=== PATIENT | female | born 1950 | race Caucasian/White ===

== ENCOUNTER 2020-08-02 13:49 | Outpatient (REF) | payer MEDICARE, SELFPAY ==
--- NOTE | ~2020-08-02 | MM_ITS ---
EXAMINATION: MM SCREENING DIGITAL BREAST TOMOSYNTHESIS, BILATERAL CLINICAL INFORMATION: Screening. Asymptomatic. The lifetime risk of breast cancer based on the Tyrer-Cuzick Model is 2%. COMPARISON: Mammography: 07/28/2019, 06/13/2018, 05/22/2017, 04/24/2016, 03/05/2015, 02/01/2014, 01/20/2013. TECHNIQUE: Digital breast tomosynthesis is performed in both the craniocaudal and mediolateral oblique views along with computer-aided detection (CAD). Synthesized 2D images are generated from the tomosynthesis. Additional bilateral CC views are provided. FINDINGS: There are scattered areas of fibroglandular density (ACR BI-RADS breast composition Category b). Parenchymal pattern is similar to prior exams and borders on predominantly fatty. There is a stable chronic round mass or fibroglandular density retroareolar left breast approximately 1.6 cm similar to prior exams. Neither breast shows developing density. There are no abnormal calcifications. The axilla and skin contours are unremarkable. MM/MM tomosynthesis screening BI IMPRESSION: No significant changes from prior studies. Stable chronic mass retroareolar left breast. ASSESSMENT: BI-RADS 2: Benign RECOMMENDATION: Routine annual mammography screening. This patient's information was entered into a reminder system with a target due date for their next mammogram.
== END 2020-08-02 13:50 | disposition home or self-care (01) ==
LOC: HO.MAMMO 13:49
PROVIDERS: PCP Internal Medicine; Visit Provider Nurse Practitioner Adult Health
DX: Z12.31 Encounter for screening mammogram for malignant neoplasm of breast (principal)
CPT/HCPCS: 77063; 77067

== ENCOUNTER 2021-08-04 12:28 | Outpatient (REF) | payer MEDICARE, SELFPAY ==
--- NOTE | ~2021-08-04 | MM_ITS ---
EXAMINATION: MM SCREENING DIGITAL BREAST TOMOSYNTHESIS, BILATERAL CLINICAL INFORMATION: Screening. Asymptomatic. The lifetime risk of breast cancer based on the Tyrer-Cuzick Model is 2%. COMPARISON: Mammography: 08/02/2020, 07/28/2019, 06/13/2018 TECHNIQUE: Digital breast tomosynthesis is performed in both the craniocaudal and mediolateral oblique views along with computer-aided detection (CAD). Synthesized 2D images are generated from the tomosynthesis. Additional bilateral MLO views are provided. FINDINGS: There are scattered areas of fibroglandular density (ACR BI-RADS breast composition Category b). Background stromal and fibroglandular densities are stable. Parenchymal pattern borders on predominantly fatty. Round fibroglandular density or chronic mass again seen anterior retroareolar left breast similar to prior studies. There is no developing density. No interval mass or architectural abnormality or abnormal calcifications. The axilla and skin contours are unremarkable. No significant changes. MM/MM tomosynthesis screening BI IMPRESSION: No significant changes from prior studies. ASSESSMENT: BI-RADS 2: Benign RECOMMENDATION: Routine annual mammography screening. This patient's information was entered into a reminder system with a target due date for their next mammogram.
== END 2021-08-04 12:29 | disposition home or self-care (01) ==
LOC: HO.MAMMO 12:28
PROVIDERS: PCP Internal Medicine; Visit Provider Internal Medicine
DX: Z12.31 Encounter for screening mammogram for malignant neoplasm of breast (principal)
CPT/HCPCS: 77063; 77067

== ENCOUNTER 2022-08-08 08:14 | Outpatient (REF) | payer MEDICARE, SELFPAY ==
--- NOTE | ~2022-08-08 | MM_ITS ---
EXAMINATION: MM SCREENING DIGITAL BREAST TOMOSYNTHESIS, BILATERAL CLINICAL INFORMATION: Screening. Asymptomatic. The lifetime risk of breast cancer based on the Tyrer-Cuzick Model is 2%. COMPARISON: Mammography: 08/04/2021, 08/02/2020, 07/28/2019, 06/13/2018, 05/22/2017 TECHNIQUE: Digital breast tomosynthesis is performed in both the craniocaudal and mediolateral oblique views along with computer-aided detection (CAD). Synthesized 2D images are generated from the tomosynthesis. Additional left CC and left MLO views are provided. FINDINGS: There are scattered areas of fibroglandular density (ACR BI-RADS breast composition Category b). Parenchymal pattern is similar to prior studies and there is no developing density or significant mass or architectural abnormality. Oval parenchymal asymmetry or mass anterior central left breast is similar to prior exams. The bilateral breasts show no abnormal calcifications in the axilla and skin contours are unremarkable. MM/MM tomosynthesis screening BI IMPRESSION: No significant changes from prior studies. ASSESSMENT: BI-RADS 2: Benign RECOMMENDATION: Routine annual mammography screening. This patient's information was entered into a reminder system with a target due date for their next mammogram.
--- NOTE | ~2022-08-08 | MM_ITS ---
EXAMINATION: BONE DENSITOMETRY CLINICAL INDICATION: Postmenopausal. COMPARISON: Previous BD dated 07/28/2019 and baseline BD dated 04/19/2008. TECHNIQUE: Using a [employer] DXA System (software version: 13.1) manufactured by [employer], dual-energy x-ray absorptiometry was performed of the lumbar spine and left hip. The images are of good technical quality. Summary results are attached. FINDINGS: AP SPINE L1-L4: Current: BMD 1.283 g/cm2, Z-score 2.1, T-score 0.9, normal, 1.8% decrease from previous, 7.7% increase from baseline (<5% change is not significant). Prior: BMD 1.307 g/cm2. Baseline: BMD 1.191 g/cm2. LEFT FEMUR, NECK: Current: BMD 0.989 g/cm2, Z-score 1.2, T-score -0.4, normal. Prior: BMD 0.975 g/cm2. Baseline: BMD 0.977 g/cm2. LEFT FEMUR, TOTAL: Current: BMD 1.129 g/cm2, Z-score 2.3, T-score 1.0, normal, 1.5% increase from previous, 1.5% increase from baseline (<5% change is not significant). Prior: BMD 1.112 g/cm2. Baseline: BMD 1.112 g/cm2. 1220 07/18/2008 IDENTIFIED RISK FACTORS: Menopause. HISTORY OF FRACTURE: None listed. MEDICATIONS: Calcium, vitamin D. MM/XR DEXA axial skeleton IMPRESSION: 1. DIAGNOSIS: Normal bone density based on the lowest T-score value of -0.4 in the femoral neck applying World Health Organization criteria. 2. 10-YEAR FRACTURE RISK PREDICTION, FRAX: According to the guidelines, FRAX calculation should only be performed on patients in the osteopenia bone density category. Therefore, FRAX was not performed on this patient. 3. Treatment Recommendations: NOF guidelines recommend consideration for treatment in postmenopausal women and men age 50 and older presenting with the following: -A hip or vertebral (clinical or morphometric) fracture. -T-score less than or equal to -2.5 at the femoral neck or spine after appropriate evaluation to exclude secondary causes. -Low bone mass at the hip or spine and a 10-year fracture probability by FRAX of greater than or equal to 3% for hip fracture or greater than or equal to 20% for major osteoporotic fracture based on the [place] adapted WHO algorithm. 4. Other Recommendations: All treatment decisions require clinical judgment and consideration of individual patient factors, including patient preferences, comorbidities, previous drug use, risk factors not captured in the FRAX model (e.g. frailty, falls, vitamin D deficiency, increased bone turnover, interval significant decline in bone density) and possible under or overestimation of fracture risk by FRAX. FUTURE SCAN RECOMMENDATION: People with diagnosed cases of osteoporosis or at high risk for fracture should have regular bone mineral density tests. For patients eligible for Medicare, routine testing is allowed once every 2 years. The testing frequency can be increased to one year for patients who have rapidly progressing disease, those who are receiving or discontinuing medical therapy to restore bone mass, or have additional risk factors. 4
== END 2022-08-08 08:15 | disposition home or self-care (01) ==
LOC: HO.MAMMO 08:14
PROVIDERS: PCP Internal Medicine; Visit Provider Internal Medicine
DX: Z12.31 Encounter for screening mammogram for malignant neoplasm of breast (principal); Z13.820 Encounter for screening for osteoporosis; Z78.0 Asymptomatic menopausal state
CPT/HCPCS: 77063; 77067; 77080

== ENCOUNTER 2023-08-14 08:59 | Outpatient (REF) | payer MEDICARE, SELFPAY | END 2023-08-14 09:00 | disposition home or self-care (01) | LOC: HO.MAMMO 08:59 | PROVIDERS: PCP Internal Medicine; Visit Provider Internal Medicine | DX: Z12.31 Encounter for screening mammogram for malignant neoplasm of breast (principal) | CPT/HCPCS: 77063; 77067 ==

== ENCOUNTER → 2023-08-14 09:30 | Outpatient (BNV) | payer MEDICARE, SELFPAY | PROVIDERS: PCP Internal Medicine; Visit Provider Radiology Diagnostic Radiology | DX: Z12.31 Encounter for screening mammogram for malignant neoplasm of breast (principal) | CPT/HCPCS: 77063; 77067 ==

== ENCOUNTER 2024-09-25 12:32 | Outpatient (REF) | payer MEDICARE, SELFPAY ==
--- NOTE | ~2024-09-25 | MM_ITS ---
EXAMINATION: DXA BONE DENSITY AXIAL HISTORY: Z78.0 MENOPAUSAL STATE TECHNIQUE: [employer] Dual energy absorptiometry (DEXA) of the lumbar spine, total left hip, and femoral neck was performed. COMPARISON: Comparison is made with the prior examination dated 08/08/2022. FINDINGS: The bone mineral density of the lumbar spine is 1.306 with a T-score of 1.0, and a Z-score of 2.3. This is indicative of normal bone mineral density. This represents a BMD change of 1.8% compared to the prior exam. This is not statistically significant. The bone mineral density of the left total hip is 1.080 with a T-score of 0.6, and a Z-score of 2.0. This is indicative of normal bone mineral density.- This represents a BMD change of 4.3% compared to the prior exam. This is statistically significant. The bone mineral density of the left femoral neck is 0.970 with a T-score of -0.5, and a Z-score of 1.1. This is indicative of normal bone mineral density. This represents a BMD change of -1.9% compared to the prior exam. FRACTURE RISK: The FRAX index suggests a ten year probability of major osteoporotic fracture of 8.1%, and of hip fracture 0.9%. MM/XR DEXA axial skeleton IMPRESSION: Based on bone mineral density, and according to World Health Organization (WHO) criteria, the diagnosis is consistent with normal bone mineral density. All bone density values are in grams per centimeter squared (g/cm2). Statistically, 68% of repeat scans fall within 1 SD (+/- 0.010 g/cm2 for AP spine L1-L4) and 1 SD (+/- 0.012 g/cm2 for femur total) FRAX is a trademark of the [employer], a World Health Organization (WHO) Collaborating Center. Electronically signed by: Denis Falcon MD 09/25/2024 01:27 PM EDT
--- OUTSIDE RECORDS SUMMARY | 2024-09-25 13:10 | XMS_ITS | Clinical Summary ---
Author Organization [facility] 299 [facility] Address [address] [place] [address] Phone Care Team Providers Care Shipping Services Sales Representative Name Role Phone Oli Benoit DO Primary Care Provider [phone] Allergies Active Allergy Reactions Criticality Noted Date Comments Codeine 09/09/2024 Medications sertraline (ZOLOFT) 50 mg tablet Take 1 tablet (50 mg total) by mouth 1 (one) time each day. 06/22/2024 Active omeprazole (PriLOSEC) [address] capsule Take 1 capsule (20 mg total) by mouth 1 (one) time each day. Do not crush or chew. Active traMADoL (ULTRAM) 50 mg tablet 08/10/2024 Active Active Problems Problem Noted Date Diagnosed Date Gastroesophageal reflux disease without esophagi tis 09/09/2024 Encounters Date Type Department Care Team Description 09/10/2024 Telephone Gastroenterology - [address] [facility] [address] [place] [phone] Sveta Esteves MA 09/09/2024 9:17 AM EDT Anesthesia Event [facility] Endoscopy [address] [place] [phone] Yuli Shah MD 09/09/2024 8:33 AM EDT - 09/09/2024 11:59 PM EDT Hospital Encounter [facility] End[facility] [address] [place] [phone] Britany Booth MD Barnes, Tyanna R, CRNA Kriz, Petra, MD Personal history of other colon polyps; Family history of colonic polyps Discharge Disposition: Home or Self Care 09/07/2024 Telephone Gastroenterology - [address] [phone] Britany Booth MD 07/10/2024 Telephone Gastroenterology - [address] [phone] Britany Booth MD 06/29/2024 Telephone Gastroenterology - [address] [phone] Britany Booth MD from Last 3 Months Surgical History Surgery Date Site/Laterality Comments COLONOSCOPY SHOULDER ARTHROSCOPY CHOLECYSTECTOMY Medical History Medical History Date Comments GERD (gastroesophageal reflux disease) Hyperlipidemia Liver disease Depression Social History Tobacco Use Types Packs/Day Years Used Date Smoking Tobacco: Never Smokeless Tobacco: Never Tobacco Cessation:Counseling Given: Not Answered Alcohol Use Standard Drinks/Week Comments Never 0 (1 standard drink = 0.6 oz pur e alcohol) Interpersonal Safety Answer Date Record ed Physical Abuse 09/09/2024 Verbal Abuse 09/09/2024 Comments Unknown Sex and Gender Information Value Date Recorded Sex Assigned at Female 09/09/2024 8:31 AM EDT Legal Sex Female 9:10 AM EST Gender Identity Female 09/09/2024 8:31 AM EDT Sexual Orientation Straight 09/09/2024 8: 31 AM EDT Obstetrics History Last Filed Vital Signs Vital Sign Reading Time Taken Comments Blood Pressure 116/78 09/09/2024 9:58 AM EDT Pulse 68 09/09/2024 9:58 AM EDT Temperature 36.5 ??C (97.7 ??F) 09/09/2024 9:08 AM ED T Respiratory Rate 18 09/09/2024 9:58 AM EDT Oxygen Saturation 95% 09/09/2024 9:38 AM EDT Inhaled Oxygen Concentration - - Weight 81.6 kg (180 lb) 09/09/2024 9:08 AM EDT Height 160 cm (5' 3 ) 09/09/2024 9:08 AM EDT Body Mass Index 31.89 09/09/2024 9:08 AM EDT Plan of Treatment Health Maintenance Due Date Last Done Comments DTaP,Tdap,and Td Vaccines (1 - Tdap) 09/16/1967 Pneumococcal Vaccine: 50+ Years (1 of 2 - PCV) 09/16/1967 Zoster Vaccines (1 of 2) 1998 Depression Screening 05/20/2022 Hepatitis C Screening 05/20/2022 Medicare Annual Wellness Visit 05/20/2022 Osteoporosis Screening (Bone Density Screening) 05/20/2022 Social Influencers of Health Screening 05/20/2022 RSV Immunization Adult Patients (1 - 1-dose 75+ series) 09/16/2023 COVID-19 Vaccine (2023- season) 2024 05/17/2021, 09/24/2020, 09/03/2020 Falls Risk Assessment 09/09/2025 09/09/2024 Cholesterol Screening (Lipid Panel) 08/10/2029 08/10/2024 Influenza Vaccine Completed 04/07/2024, , 04/10/2022, Additional history exists Colorectal Cancer Screening: Colonoscopy Discontinued 09/09/2024, 01/13/2013, 01/13/2013, Additional history exists HIB Vaccines Aged Out No longer eligi ble based on patient's age to complete this topic HPV Vaccines Aged Out No longer eligi ble based on patient's age to complete this topic Hepatitis A Vaccines Aged Out No long er eligible based on patient's age to complete this topic Hepatitis B Vaccines Aged Out No long er eligible based on patient's age to complete this topic IPV Vaccines Aged Out No longer eligi ble based on patient's age to complete this topic MMR Vaccines Aged Out No longer eligi ble based on patient's age to complete this topic Meningococcal ACWY Vaccine Aged Out N o longer eligible based on patient's age to complete this topic Meningococcal B Vaccine Aged Out No l onger eligible based on patient's age to complete this topic RSV Immunization Patients Under 20 months Aged Out No longer eligible based on patient's age to complete this topic Varicella Vaccines Aged Out No longer eligible based on patient's age to complete this topic Procedures Procedure Name Priority Date/Time Associated Diagnosis Comments COLONOSCOPY Routine 09/09/2024 9:37 AM EDT Personal history of other colon polyps Family history of colonic polyps TISSUE EXAM Routine 09/09/2024 9:28 AM EDT Personal history of other colon polyps Family history of colonic polyps CBC WITH AUTO DIFFERENTIAL Routine 08/10/2024 8:22 AM EST Esophageal reflux Fatty metamorphosis of liver Routine general medical examination at a health care facility Obesity, unspecified GERD (gastroesophageal reflux disease) HEMOGLOBIN A1C Routine 08/10/2024 8:22 AM EST Esophageal reflux Fatty metamorphosis of liver Routine general medical examination at a [facility] Obesity, unspecified GERD (gastroesophageal reflux disease) Abnormal finding of blood chemistry, unspecified COMPREHENSIVE METABOLIC PANEL Routine 08/10/2024 8:22 AM EST Esophageal reflux Fatty metamorphosis of liver Routine general medical examination at a [facility] facility Obesity, unspecified GERD (gastroesophageal reflux disease) CBC AND DIFFERENTIAL Routine 08/10/2024 8:22 AM EST Esophageal reflux Fatty metamorphosis of liver Routine general medical examination at a [facility] Obesity, unspecified GERD (gastroesophageal reflux disease) THYROID STIMULATING HORMONE Routine 08/10/2024 8:22 AM EST Esophageal reflux Fatty metamorphosis of liver Routine general medical examination at a [facility] Obesity, unspecified GERD (gastroesophageal reflux disease) Abnormal findings on diagnostic imaging of other specified body structures LIPID PANEL WITH REFLEX TO DIRECT LDL Routine 08/10/2024 8:22 AM EST Esophageal reflux Fatty metamorphosis of liver Routine general medical examination at a health care facility Obesity, unspecified GERD (gastroesophageal reflux disease) from Last 3 Months Results * COLONOSCOPY Anesthesia - MAC; [facility] ENDOSCOPY (09/09/2024 9:37 AM EDT) Anatomical Region Laterality Modality Other 09/09/2024 9:13 AM EDT Impressions 09/09/2024 9:39 AM EDT - The examined portion of the ileum was normal. ? - One 3 mm polyp in the transverse colon, removed with ? a cold snare. Resected and retrieved. ? - Diverticulosis in the sigmoid colon. ? - Two 1 to 2 mm polyps in the rectum, removed with a ? cold snare. Resected and retrieved. ? - Internal hemorrhoids. Recommendation: ?- Await pathology results. ? - Repeat colonoscopy is not recommended for ? surveillance. Narrative 09/09/2024 9:39 AM EDT [facility] GI Patient Name: Kevon Cook Procedure Date: 09/09/2024 9:13 AM Date of : 1950 Age: 73 Gender: Female Note Status: Finalized Attending MD: Britany Booth MD, Procedure Date No Time: 09/09/2024 Procedure: ? Colonoscopy Indications: ? High risk colon cancer surveillance: Personal history ? of colonic polyps Providers: ? Britany Booth MD Referring MD: ?Oli Benoit, DO Medicines: ? Propofol per Anesthesia Complications: ? No immediate complications. Estimated Blood Loss: ? Estimated blood loss: none. Procedure: ? Pre-Anesthesia Assessment: ? - ASA Grade Assessment: II - A patient with mild ? systemic disease. ? After I obtained informed consent, the scope was ? passed under direct vision. Throughout the procedure, ? the patient's blood pressure, pulse, and oxygen ? saturations were monitored continuously.The Olympus ? Pediatric Colonoscope was introduced through the anus ? and advanced to the terminal ileum. The colonoscopy ? was performed without difficulty. The patient ? tolerated the procedure well. The quality of the bowel ? preparation was good. Findings: ?The perianal and digital rectal examinations were ? normal. ? The terminal ileum appeared normal. ? Incidental nonbleeding AVM was noted in the cecum ? A 3 mm polyp was found in the transverse colon. The ? polyp was sessile. The polyp was removed with a cold ? snare. Resection and retrieval were complete. ? A few small-mouthed diverticula were found in the ? sigmoid colon. ? Two sessile polyps were found in the rectum. The ? polyps were 1 to 2 mm in size. These polyps were ? removed with a cold snare. Resection and retrieval ? were complete. ? Internal hemorrhoids were found during retroflexion. ? The hemorrhoids were Grade I (internal hemorrhoids ? that do not prolapse). Procedure Code(s): ? --- Professional --- ? 32380, Colonoscopy, flexible; with removal of ? tumor(s), polyp(s), or other lesion(s) by snare ? technique Diagnosis Code(s): ? --- Professional --- ? Z86.010, Personal history of colonic polyps ? D12.3, Benign neoplasm of transverse colon (hepatic ? flexure or splenic flexure) ? D12.8, Benign neoplasm of rectum CPT copyright 2020 [employer]. All rights reserved. The codes documented in this report are preliminary and upon animal nutrition consultant review may be revised to meet current compliance requirements. Britany Booth MD 09/09/2024 9:39:11 AM This report has been signed electronically.Britany Booth MD Number of Addenda: 0 Note Initiated On: 09/09/2024 9:13 AM Scope In: Scope Out: ? Endoscopy Department at [facility] - [address] [place] [address], ? [place] [phone] Procedure Note Britany Booth MD - 09/09/2024 [facility] GI Patient Name: Kevon Cook Procedure Date: 09/09/2024 9:13 AM Date of : 1950 Age: 73 Gender: Female Note Status: Finalized Attending MD: Britany Booth MD, Procedure Date No Time: 09/09/2024 Procedure: Colonoscopy Indications: High risk colon cancer surveillance: Personalhistory of colonic polyps Providers: Britany Booth MD Referring MD: Oli Benoit DO Medicines: Propofol per Anesthesia Complications: No immediate complications. Estimated Blood Loss: Estimated blood loss: none. Procedure: Pre-Anesthesia Assessment: - ASA Grade Assessment: II - A patient with mild systemic disease. After I obtained informed consent, the scope was passed under direct vision. Throughout theprocedure, the patient's blood pressure, pulse, and oxygen saturations were monitored continuously.The Olympus Pediatric Colonoscope was introduced through theanus and advanced to the terminal ileum. The colonoscopy was performed without difficulty. The patient tolerated the procedure well. The quality of thebowel preparation was good. Findings: The perianal and digital rectal examinations were normal. The terminal ileum appeared normal. Incidental nonbleeding AVM was noted in the cecum A 3 mm polyp was found in the transverse colon. The polyp was sessile. The polyp was removed with acold snare. Resection and retrieval were complete. A few small-mouthed diverticula were found in the sigmoid colon. Two sessile polyps were found in the rectum. The polyps were 1 to 2 mm in size. These polyps were removed with a cold snare. Resection and retrieval were complete. Internal hemorrhoids were found duringretroflexion. The hemorrhoids were Grade I (internal hemorrhoids that do not prolapse). Procedure Code(s): --- Professional --- 77814, Colonoscopy, flexible; with removal of tumor(s), polyp(s), or other lesion(s) by snare technique Diagnosis Code(s): --- Professional --- Z86.010, Personal history of colonic polyps D12.3, Benign neoplasm of transverse colon (hepatic flexure or splenic flexure) D12.8, Benign neoplasm of rectum CPT copyright 2020 [employer]. All rights reserved. The codes documented in this report are preliminary and upon animal nutrition consultant reviewmay be revised to meet current compliance requirements. Britany Booth MD 09/09/2024 9:39:11 AM This report has been signed electronically.Britany Booth MD Number of Addenda: 0 Note Initiated On: 09/09/2024 9:13 AM Scope In: Scope Out: Endoscopy Department at [facility] - [address] [place] [phone] IMPRESSION: - The examined portion of the ileum was normal. - One 3 mm polyp in the transverse colon, removedwith a cold snare. Resected and retrieved. - Diverticulosis in the sigmoid colon. - Two 1 to 2 mm polyps in the rectum, removed witha cold snare. Resected and retrieved. - Internal hemorrhoids. Recommendation: - Await pathology results. - Repeat colonoscopy is not recommended for surveillance. us Britany Booth MD GI~PROCEDURE ORDERABLES Final Result * Tissue exam (09/09/2024 9:28 AM EDT) Final Diagnosis A. Transverse Colon, polyp x1: Tubular adenoma. B. Rectum, polyps x2: Hyperplastic polyps. 09/10/2024 9:56 AM EDT [facility] Gross Description A. Large Intestine, Transverse Colon, polyp x1: Labeled trans colon polyp x 1 . Received in formalin is a 0.3 cm irregular uriostegui mucosal tissue fragment which is wrapped in paper and submitted in toto in one cassette, one piece, multiple levels on one slide. B. Large Intestine, Rectum, polyp x2: Labeled LI rectum polyp x 2 . Received in formalin are two irregular uriostegui mucosal tissue fragments, each measuring approximately 0.2 cm in greatest dimension, which are wrapped in paper and submitted in toto in one cassette, two pieces, multiple levels on one slide. BERNABE 09/10/2024 9:56 AM EDT [facility] Disclaimer Unless otherwise specified, all tissue is 10% NB formalin fixed and paraffin embedded. 09/10/2024 9:56 AM EDT [facility] Tissue Transverse colon structure / Unknown 09/09/2024 9:28 AM EDT 09/09/2024 10:10 AM EDT Tissue specimen (specimen) Rectum structure / Unknown 09/09/2024 9:34 AM EDT 09/09/2024 10:10 AM EDT Britany Booth MD LAB PATHOLOGY ORDERABLES Final Result [facility] [address] [place] [address], * (ABNORMAL) Lipid panel with reflex to direct LDL (08/10/2024 8:22 AM EST) Cholesterol 182 0 - 200 mg/dL LAB CHEMISTRY METHOD 08/10/2024 11:16 AM EST [facility] Triglycerides 268(H) 0 - 150 mg/dL LAB CHEMISTRY METHOD 08/10/2024 11:16 AM EST [facility] HDL 35(L) >=40 mg/dL LAB CHEMISTRY METHOD 08/10/2024 11:16 AM [facility] LDL Calculated 93 0 - 100 mg/dL LAB CHEMISTRY METHOD 08/10/2024 11:16 AM [facility] VLDL Cholesterol Niles 53.6 mg/dL LAB CHEMISTRY METHOD 08/10/2024 11:16 AM [facility] Non HDL Chol. (LDL+VLDL) 147(H) <145 mg/dL LAB CHEMISTRY METHOD 08/10/2024 11:16 AM [facility] Chol/HDL Ratio 5.2(H) 0.0 - 4.4 LAB CHEMISTRY METHOD 08/10/2024 11:16 AM [facility] Blood Venous blood specimen / Unknown Venipuncture / Unknown 08/10/2024 8:22 AM EST 08/10/2024 8:22 AM EST Ladan Frederick NP LAB BLOOD ORDERABLES Fi nal Result [facility] [address] [place] [address], [place] [phone] * (ABNORMAL) CBC auto differential (08/10/2024 8:22 AM EST) WBC 9.7 4.8 - 10.8 K/mcL LAB HEMETOLOGY METHOD 08/10/2024 11:07 AM [facility] RBC 4.80 3.80 - 4.80 M/mcL LAB HEMETOLOGY METHOD 08/10/2024 11:07 AM [facility] Hemoglobin 14.0 11.5 - 16.0 g/dL LAB HEMETOLOGY METHOD 08/10/2024 11:07 AM [facility] Hematocrit 43.4 35.0 - 47.0 % LAB HEMETOLOGY METHOD 08/10/2024 11:07 AM [facility] MCV 91.2 79.0 - 98.0 FL LAB HEMETOLOGY METHOD 08/10/2024 11:07 AM [facility] MCH 29.4 27.0 - 32.0 pcg LAB HEMETOLOGY METHOD 08/10/2024 11:07 AM [facility] MCHC 32.3 32.0 - 37.0 g/dL LAB HEMETOLOGY METHOD 08/10/2024 11:07 AM [facility] RDW 13.2 11.0 - 15.0 % LAB HEMETOLOGY METHOD 08/10/2024 11:07 AM [facility] Platelets 269 130 - 400 K/mcL LAB HEMETOLOGY METHOD 08/10/2024 11:07 AM [facility] MPV 10.0 7.0 - 11.0 FL LAB HEMETOLOGY METHOD 08/10/2024 11:07 AM [facility] NRBC 0.0 <1.0 % LAB HEMETOLOGY METHOD 08/10/2024 11:07 AM [facility] NRBC Absolute 0.00 <0.10 K/mcL LAB HEMETOLOGY METHOD 08/10/2024 11:07 AM [facility] Neutrophils Relative 67.3 % LAB HEMETOLOGY METHOD 08/10/2024 11:07 AM [facility] Lymphocytes Relative 24.8 % LAB HEMETOLOGY METHOD 08/10/2024 11:07 AM [facility] Monocytes Relative 5.4 % LAB HEMETOLOGY METHOD 08/10/2024 11:07 AM [facility] Eosinophils Relative 1.6 % LAB HEMETOLOGY METHOD 08/10/2024 11:07 AM [facility] Basophils Relative 0.5 % LAB HEMETOLOGY METHOD 08/10/2024 11:07 AM [facility] Immature Granulocytes Relative 0.4 % LAB HEMETOLOGY METHOD 08/10/2024 11:07 AM [facility] Neutrophils Absolute 6.50 1.50 - 7.00 K/mcL LAB HEMETOLOGY METHOD 08/10/2024 11:07 AM EST [facility] Lymphocytes Absolute 2.39 1.00 - 5.00 K/mcL LAB HEMETOLOGY METHOD 08/10/2024 11:07 AM EST [facility] Monocytes Absolute 0.52 0.20 - 1.00 K/mcL LAB HEMETOLOGY METHOD 08/10/2024 11:07 AM EST [facility] Eosinophils Absolute 0.15 0.00 - 0.50 K/[facility] LAB HEMETOLOGY METHOD 08/10/2024 11:07 AM EST [facility] Basophils Absolute 0.05 0.00 - 0.20 K/mcL LAB HEMETOLOGY METHOD 08/10/2024 11:07 AM [facility] Immature Granulocytes Absolute 0.04(H) 0.00 - 0.03 K/mcL LAB HEMETOLOGY METHOD 08/10/2024 11:07 AM [facility] Blood Venous blood specimen / Unknown Venipuncture / Unknown 08/10/2024 8:22 AM EST 08/10/2024 8:22 AM EST Ladan Frederick WHOLESALE ACCOUNT EXECUTIVE LAB BLOOD ORDERABLES Fi nal Result [facility] [address] [place] [address], * Thyroid stimulating hormone (08/10/2024 8:22 AM EST) TSH 2.64 0.40 - 4.00 mcIU/mL LAB CHEMISTRY METHOD 08/10/2024 11:24 AM EST [facility] Blood Venous blood specimen / Unknown Venipuncture / Unknown 08/10/2024 8:22 AM EST 08/10/2024 8:22 AM EST us Ladan Frederick WHOLESALE ACCOUNT EXECUTIVE LAB BLOOD ORDERABLES Fi nal Result [facility] [address] [place] [address], [place] [phone] * Hemoglobin A1c (08/10/2024 8:22 AM EST) Pathologist [facility] Hemoglobin A1C 5.9 <6.5 % LAB CHEMISTRY METHOD 08/10/2024 1:55 PM EST [facility] Mean Bld Glu Estim. 123 mg/dL LAB CHEMISTRY METHOD 08/10/2024 1:55 PM [facility] Blood Venous blood specimen / Unknown Venipuncture / Unknown 08/10/2024 8:22 AM EST 08/10/2024 8:22 AM EST us Ladan Frederick NP LAB BLOOD ORDERABLES Fi nal Result Performing Organization Address [facility]/ZIP Co de Phone Number [facility] [address] [place] [address], [place] [phone] * (ABNORMAL) Comprehensive metabolic panel (08/10/2024 8:22 AM EST) [facility] Sodium 141 133 - 145 mmol/L LAB CHEMISTRY METHOD 08/10/2024 11:16 AM [facility] Potassium 3.6 3.5 - 5.5 mmol/L LAB CHEMISTRY METHOD 08/10/2024 11:16 AM [facility] Chloride 108 96 - 110 mmol/L LAB CHEMISTRY METHOD 08/10/2024 11:16 AM [facility] CO2 26 21 - 32 mmol/L LAB CHEMISTRY METHOD 08/10/2024 11:16 AM [facility] Anion Gap 7 3 - 11 LAB CHEMISTRY METHOD 08/10/2024 11:16 AM [facility] Glucose 164(H) 70 - 100 mg/dL LAB CHEMISTRY METHOD 08/10/2024 11:16 AM [facility] BUN 11 5 - 25 mg/dL LAB CHEMISTRY METHOD 08/10/2024 11:16 AM [facility] Creatinine 0.64 0.50 - 1.10 mg/dL LAB CHEMISTRY METHOD 08/10/2024 11:16 AM [facility] eGFR 92 >=60 mL/min/1. 73m2 LAB CHEMISTRY METHOD 08/10/2024 11:16 AM [facility] Comment:Calculation based on the??Chronic Kidney Disease Epidemiology Collaboration (CKD-EPI) equation refit??without adjustment for race. BUN/Creatinine Ratio 17.2 LAB CHEMISTRY METHOD 08/10/2024 11:16 AM [facility] Calcium 8.7 8.5 - 10.5 mg/dL LAB CHEMISTRY METHOD 08/10/2024 11:16 AM [facility] AST (SGOT) 17 10 - 42 unit/L LAB CHEMISTRY METHOD 08/10/2024 11:16 AM [facility] ALT (SGPT) 35 10 - 60 unit/L LAB CHEMISTRY METHOD 08/10/2024 11:16 AM [facility] Alkaline Phosphatase 138(H) 42 - 121 unit/L LAB CHEMISTRY METHOD 08/10/2024 11:16 AM [facility] Total Protein 7.3 6.0 - 8.0 g/dL LAB CHEMISTRY METHOD 08/10/2024 11:16 AM [facility] Albumin 3.7 3.2 - 5.0 g/dL LAB CHEMISTRY METHOD 08/10/2024 11:16 AM [facility] Total Bilirubin 0.3 0.0 - 1.4 mg/dL LAB CHEMISTRY METHOD 08/10/2024 11:16 AM [facility] Blood Venous blood specimen / Unknown Venipuncture / Unknown 08/10/2024 8:22 AM EST 08/10/2024 8:22 AM EST us Ladan Frederick WHOLESALE ACCOUNT EXECUTIVE LAB BLOOD ORDERABLES Fi nal Result [facility] [address] [place] [address], [place] [phone] from Last 3 Months Insurance [employer] - [place] MEDICARE ADVANTAGE Care Teams Shipping Services Sales Representative Relationship Specialty Start Date End Date Oli Benoit DO [address] [place] [phone] PCP - General Internal Medicine 02/08/21
== END 2024-09-25 12:33 | disposition home or self-care (01) ==
LOC: HO.MAMMO 12:32
PROVIDERS: PCP Internal Medicine; Visit Provider Internal Medicine
DX: Z12.31 Encounter for screening mammogram for malignant neoplasm of breast (principal); Z13.820 Encounter for screening for osteoporosis; Z78.0 Asymptomatic menopausal state
CPT/HCPCS: 77063; 77067; 77080

== ENCOUNTER → 2024-09-25 13:30 | Outpatient (BNV) | payer MEDICARE, SELFPAY | PROVIDERS: PCP Internal Medicine; Visit Provider Radiology Diagnostic Radiology | DX: E28.39 Other primary ovarian failure (principal) | CPT/HCPCS: 77080 ==